=== PATIENT | female | born 1955 | race Two or more races ===

== ENCOUNTER 2024-09-02 05:32 | Day surgery (SDC) | payer OTHER ==
[2024-08-29 09:19] LABS: BASO % 0.2 % (0.1-1.2); EOS # 0.11 (0.04-0.54); EOS % 1.2 % (0.7-7.0); LYMPH # 3.00 (1.18-3.74); LYMPH % 32.4 % (19.3-53.1); MEAN PLATELET VOLUME 10.50 fl (9.4-12.4); MONO # 0.76 (0.24-0.82); MONO % 8.2 % (4.7-12.5); NEUT # 5.34 (1.56-6.13); NEUT % 57.8 % (34.0-71.1); RED CELL DISTRIBUTION WIDTH 15.9 % (11.6-14.4)
[2024-08-29 09:40] VITALS: BP 118/70
[2024-08-29 09:43] LABS: INR 1.07
[2024-08-29 10:06] LABS: ALT/SGPT 150.0 U/L (12-78); AST/SGOT 125.0 U/L (15-37); BILIRUBIN TOTAL 2.95 mg/dL (0.3-1.2); BUN CREA RATIO 20.0 (7.0-25.0); CREATININE SERUM 0.94 mg/dL (0.55-1.02); GFR 59.04; GLOBULINA 5.3 G/DL (2.4-3.5); OSMOLALITY SERUM 283.0 MOSM/KG (275-295)
[2024-08-29 10:33] LABS: GLUCOSE FASTING 216.0 mg/dL (65-100)
[~2024-09-02] VITALS: Ht 157.5 cm; Wt 60.3 kg
[2024-09-02] MEDS ORDERED: IOVERSOL 320 MG/ML - 50 ML VIAL IV ONE (12:45)
[2024-09-02] MEDS ORDERED: GLUCAGON 1 MG VIAL IV ONE (12:45)
[2024-09-02] MEDS ORDERED: SUGAMMADEX SODIUM 200 MG/2 ML VIAL IV ONE (12:45)
== END 2024-09-02 12:45 | disposition home or self-care (01) ==
LOC: CIR.AMB 05:32
PROVIDERS: ATTEND Internal Medicine
DX: K83.1 Obstruction of bile duct (principal); D37.8 Neoplasm of uncertain behavior of other specified digestive organs; R93.3 Abnormal findings on diagnostic imaging of other parts of digestive tract; K86.9 Disease of pancreas, unspecified
CPT/HCPCS: 43276; 43238; C1748